=== PATIENT | male | born 1960 | race Caucasian/White ===

== ENCOUNTER 2018-02-24 18:38 | Inpatient (IN) | payer MEDICARE, OTHER ==
[2018-02-24 20:40] LABS: ADD MAN DIFF? NO
[2018-02-24 20:41] LABS: WHITE BLOOD COUNT 8.8 10^3/ul (4.8-10.8)
[2018-02-24 20:41] LABS: BASOPHIL # 0.1 10^3/ul (0.0-0.1); BASOPHILS % 0.6 % (0.0-2.0); EOSINOPHILS # 0.2 10^3/ul (0.0-0.5); EOSINOPHILS % 2.3 % (0.0-7.0); HEMATOCRIT 33.8 % (42.0-52.0); HEMOGLOBIN 10.7 g/dl (14.0-18.0); LYMPHOCYTES # 1.3 10^3/ul (0.8-2.9); LYMPHOCYTES % 15.1 % (15.0-51.0); MEAN CORPUSCULAR HEMOGLOBIN 22.9 pg (29.0-33.0); MEAN CORPUSCULAR HGB CONC 31.7 g/dl (32.0-37.0); MEAN CORPUSCULAR VOLUME 72.2 fl (82.0-101.0); MONOCYTE # 0.9 10^3/ul (0.3-0.9); MONOCYTES % 10.6 % (0.0-11.0); NEUTROPHIL # 6.3 10^3/ul (1.6-7.5); NEUTROPHILS % 71.2 % (39.0-77.0); PLATELET COUNT 123 10^3/UL (140-415); RED BLOOD COUNT 4.68 10^6/ul (4.70-6.10); RED CELL DISTRIBUTION WIDTH 21.2 % (11.5-14.5)
[2018-02-24] MEDS: ONDANSETRON 4 MG INJ IV (20:44)
[2018-02-24] MEDS: SODIUM CHLORIDE 0.9% 1L BAG IV* (20:44)
[2018-02-24] MEDS: morphine 2 MG INJ IV (20:44)
[2018-02-24] MEDS: CEFEPIME 2GM/50 ML (PMX) 50 ML IVPB (20:45)
[2018-02-24 20:59] LABS: INR 1.42; PROTIME 17.6 Sec (11.9-14.9); PT RATIO 1.4
[2018-02-24 21:00] LABS: PARTIAL THROMBOPLASTIN TIME 38.8 Sec (25.0-35.0)
[2018-02-24 21:02] LABS: ALANINE AMINOTRANSFERASE 29 IU/L (13-69); ALBUMIN 3.5 g/dl (3.3-4.9); ALBUMIN/GLOBULIN RATIO 0.79; ALKALINE PHOSPHATASE 89 IU/L (42-121); ANION GAP 12 (8-16); ASPARTATE AMINO TRANSFERASE 40 IU/L (15-46); BILIRUBIN,INDIRECT 1.4 mg/dl (0-1.1); BILIRUBIN,TOTAL 1.4 mg/dl (0.2-1.3); BLOOD UREA NITROGEN 6 mg/dl (7-20); CALCIUM 8.3 mg/dl (8.4-10.2); CARBON DIOXIDE 24 mmol/L (21-31); CHLORIDE 104 mmol/L (97-110); CREATININE 0.51 mg/dl (0.61-1.24); GLUCOSE 103 mg/dl (70-220); SODIUM 137 mmol/L (135-144); TOTAL PROTEIN 7.9 g/dl (6.1-8.1)
[2018-02-24 21:06] LABS: LACTIC ACID 2.2 mmol/L (0.5-2.0)
[2018-02-24 21:12] LABS: ADD UMIC NO; UR ASCORBIC ACID NEGATIVE (NEGATIVE); UR BILIRUBIN (Dip) NEGATIVE (NEGATIVE); UR BLOOD (Dip) NEGATIVE (NEGATIVE); UR CLARITY CLEAR (CLEAR); UR COLOR YELLOW (YELLOW); UR GLUCOSE (Dip) NEGATIVE (NEGATIVE); UR KETONES (Dip) NEGATIVE (NEGATIVE); UR LEUKOCYTE ESTERASE (Dip) NEGATIVE Leu/ul (NEGATIVE); UR NITRITE (Dip) NEGATIVE (NEGATIVE); UR SPECIFIC GRAVITY (Dip) 1.012 (1.003-1.030); UR TOTAL PROTEIN (Dip) NEGATIVE (NEGATIVE); UR UROBILINOGEN (Dip) NEGATIVE (NEGATIVE)
[2018-02-24 21:13] LABS: TROPONIN-I < 0.010 ng/ml (0.000-0.120)
[2018-02-24] MEDS: ASPIRIN 81 MG TAB PO (21:28)
[2018-02-24 23:11] LABS: LACTIC ACID 1.2 mmol/L (0.5-2.0)
[2018-02-25] MEDS: POTASSIUM CHLORIDE (SR) 20 MEQ TAB PO ×2 (00:16→12:11)
[2018-02-25 00:54] LABS: MAGNESIUM 1.3 mg/dl (1.7-2.5)
[2018-02-25 01:03] LABS: LACTIC ACID 1.3 mmol/L (0.5-2.0)
[2018-02-25] MEDS ORDERED: ONDANSETRON 4 MG INJ IV (03:00)
[2018-02-25] MEDS: SOD CHLORIDE 0.9% 1,000 ML IV (03:02)
[2018-02-25 05:46] LABS: ADD MAN DIFF? NO
[2018-02-25 05:50] LABS: WHITE BLOOD COUNT 5.5 10^3/ul (4.8-10.8)
[2018-02-25 05:50] LABS: ABNORMAL IP MESSAGE 1; BASOPHIL # 0.1 10^3/ul (0.0-0.1); BASOPHILS % 0.9 % (0.0-2.0); EOSINOPHILS # 0.2 10^3/ul (0.0-0.5); EOSINOPHILS % 4.4 % (0.0-7.0); HEMATOCRIT 28.4 % (42.0-52.0); HEMOGLOBIN 8.6 g/dl (14.0-18.0); LYMPHOCYTES # 1.4 10^3/ul (0.8-2.9); LYMPHOCYTES % 26.2 % (15.0-51.0); MEAN CORPUSCULAR HEMOGLOBIN 22.7 pg (29.0-33.0); MEAN CORPUSCULAR HGB CONC 30.3 g/dl (32.0-37.0); MEAN CORPUSCULAR VOLUME 74.9 fl (82.0-101.0); MEAN PLATELET VOLUME 10.9 fl (7.4-10.4); MONOCYTE # 0.7 10^3/ul (0.3-0.9); MONOCYTES % 12.6 % (0.0-11.0); NEUTROPHIL # 3.1 10^3/ul (1.6-7.5); NEUTROPHILS % 55.7 % (39.0-77.0); PLATELET COUNT 110 10^3/UL (140-415); POSITIVE DIFF @See below; RED BLOOD COUNT 3.79 10^6/ul (4.70-6.10); RED CELL DISTRIBUTION WIDTH 20.6 % (11.5-14.5)
[2018-02-25 06:03] LABS: LACTIC ACID 1.2 mmol/L (0.5-2.0)
[2018-02-25 06:14] LABS: ALANINE AMINOTRANSFERASE 27 IU/L (13-69); ALBUMIN 2.6 g/dl (3.3-4.9); ALKALINE PHOSPHATASE 64 IU/L (42-121); ANION GAP 7 (8-16); ASPARTATE AMINO TRANSFERASE 32 IU/L (15-46); BILIRUBIN,INDIRECT 1.3 mg/dl (0-1.1); BILIRUBIN,TOTAL 1.3 mg/dl (0.2-1.3); BLOOD UREA NITROGEN 5 mg/dl (7-20); CALCIUM 7.5 mg/dl (8.4-10.2); CARBON DIOXIDE 26 mmol/L (21-31); CHLORIDE 112 mmol/L (97-110); CREATININE 0.47 mg/dl (0.61-1.24); GLUCOSE 84 mg/dl (70-220); MAGNESIUM 1.4 mg/dl (1.7-2.5); POTASSIUM 3.3 mmol/L (3.5-5.1); SODIUM 142 mmol/L (135-144); TOTAL PROTEIN 6.3 g/dl (6.1-8.1)
[2018-02-25] MEDS: LEVOTHYROXINE 25 MCG TAB PO ×2 (07:00→10:58)
[2018-02-25] MEDS: metroNIDAZOLE 500 MG/NS (PMX) 100 ML IVPB ×3 (08:36→21:30)
[2018-02-25] MEDS ORDERED: CEFTRIAXONE 1 GM/50 ML (PMX) 50 ML IVPB (09:00)
[2018-02-25] MEDS: CIPROFLOXACIN 400MG/D5W 200 ML IVPB ×2 (10:25→21:30)
[2018-02-25] MEDS: COLCHICINE 0.6 MG TAB PO (10:57)
[2018-02-25] MEDS: BUSPIRONE 10 MG TAB PO ×3 (10:58→21:30)
[2018-02-25] MEDS: SERTRALINE 100 MG TAB PO (10:58)
[2018-02-25] MEDS: ALLOPURINOL 100 MG TAB PO ×2 (10:58→21:30)
[2018-02-25] MEDS: BACLOFEN 10 MG TAB PO ×3 (10:58→21:30)
[2018-02-25] MEDS: MAGNESIUM SULFATE 2 GM/50 ML 50 ML IVPB (12:11)
[2018-02-25] MEDS: METHOCARBAMOL 500 MG TAB PO (12:16)
[2018-02-25] MEDS: POTASSIUM CHLORIDE 100 ML IVPB (14:46)
[2018-02-25] MEDS: BARIUM SULF 2% 450 ML BTL (BERRY SMOOTHIE) PO (17:03)
[2018-02-25] MEDS: SOD CHLORIDE 0.9% 100 ML (20:51)
[2018-02-25] MEDS: IOHEXOL 300MG/ML 150 ML BTL (20:52)
[2018-02-25] MEDS: ATORVASTATIN 10 MG TAB PO (21:30)
[2018-02-25] MEDS: ACETAMINOPHEN 325 MG TAB PO (21:36)
[2018-02-26] MEDS: metroNIDAZOLE 500 MG/NS (PMX) 100 ML IVPB ×3 (05:08→22:44)
[2018-02-26 05:42] LABS: ADD MAN DIFF? NO
[2018-02-26 05:56] LABS: BASOPHIL # 0.1 10^3/ul (0.0-0.1); BASOPHILS % 0.8 % (0.0-2.0); EOSINOPHILS # 0.3 10^3/ul (0.0-0.5); EOSINOPHILS % 4.5 % (0.0-7.0); HEMATOCRIT 32.1 % (42.0-52.0); HEMOGLOBIN 9.9 g/dl (14.0-18.0); LYMPHOCYTES # 1.2 10^3/ul (0.8-2.9); LYMPHOCYTES % 20.6 % (15.0-51.0); MEAN CORPUSCULAR HEMOGLOBIN 23.2 pg (29.0-33.0); MEAN CORPUSCULAR HGB CONC 30.8 g/dl (32.0-37.0); MEAN CORPUSCULAR VOLUME 75.4 fl (82.0-101.0); MEAN PLATELET VOLUME 10.1 fl (7.4-10.4); MONOCYTE # 0.8 10^3/ul (0.3-0.9); MONOCYTES % 12.6 % (0.0-11.0); NEUTROPHIL # 3.6 10^3/ul (1.6-7.5); NEUTROPHILS % 61.2 % (39.0-77.0); PLATELET COUNT 110 10^3/UL (140-415); RED BLOOD COUNT 4.26 10^6/ul (4.70-6.10); RED CELL DISTRIBUTION WIDTH 20.4 % (11.5-14.5)
[2018-02-26 06:31] LABS: IRON 13 ug/dl (35-150)
[2018-02-26 06:37] LABS: ANION GAP 8 (8-16); BLOOD UREA NITROGEN 6 mg/dl (7-20); CALCIUM 8.1 mg/dl (8.4-10.2); CARBON DIOXIDE 24 mmol/L (21-31); CHLORIDE 110 mmol/L (97-110); CREATININE 0.47 mg/dl (0.61-1.24); GLUCOSE 92 mg/dl (70-220); POTASSIUM 3.4 mmol/L (3.5-5.1); SODIUM 139 mmol/L (135-144)
[2018-02-26 06:40] LABS: % IRON SATURATION 4 % SAT (22-52); TOTAL IRON BINDING CAPACITY 327 ug/dl (241-421)
[2018-02-26] MEDS: ALLOPURINOL 100 MG TAB PO ×2 (09:00→21:09)
[2018-02-26] MEDS: SERTRALINE 100 MG TAB PO (09:00)
[2018-02-26] MEDS: BUSPIRONE 10 MG TAB PO ×3 (09:00→21:10)
[2018-02-26] MEDS: METHOCARBAMOL 500 MG TAB PO ×2 (09:00→18:28)
[2018-02-26] MEDS: LEVOTHYROXINE 25 MCG TAB PO (09:02)
[2018-02-26] MEDS: BACLOFEN 10 MG TAB PO ×3 (09:08→21:09)
[2018-02-26] MEDS: CIPROFLOXACIN 400MG/D5W 200 ML IVPB ×2 (09:12→21:08)
[2018-02-26] MEDS: COLCHICINE 0.6 MG TAB PO (09:13)
[2018-02-26] MEDS: POTASSIUM CHLORIDE (SR) 20 MEQ TAB PO (12:39)
[2018-02-26] MEDS: SOD FERRIC GLUC COMPLX 125 MG in SOD CHLORIDE 0.9% 100 ML IVPB (18:16)
[2018-02-26] MEDS: PROPRANOLOL 10 MG TAB PO (21:09)
[2018-02-26] MEDS: ATORVASTATIN 10 MG TAB PO (21:09)
[2018-02-26] MEDS: ACETAMINOPHEN 325 MG TAB PO (21:09)
[2018-02-26 22:17] LABS: OCCULT BLOOD STOOL NEGATIVE (NEGATIVE)
[2018-02-27 05:50] LABS: ADD MAN DIFF? NO
[2018-02-27] MEDS: metroNIDAZOLE 500 MG/NS (PMX) 100 ML IVPB ×2 (05:58→14:50)
[2018-02-27 06:06] LABS: WHITE BLOOD COUNT 6.2 10^3/ul (4.8-10.8)
[2018-02-27 06:06] LABS: BASOPHIL # 0.1 10^3/ul (0.0-0.1); BASOPHILS % 1.1 % (0.0-2.0); EOSINOPHILS # 0.3 10^3/ul (0.0-0.5); EOSINOPHILS % 5.1 % (0.0-7.0); HEMATOCRIT 31.3 % (42.0-52.0); HEMOGLOBIN 9.5 g/dl (14.0-18.0); LYMPHOCYTES # 1.2 10^3/ul (0.8-2.9); LYMPHOCYTES % 19.4 % (15.0-51.0); MEAN CORPUSCULAR HEMOGLOBIN 22.5 pg (29.0-33.0); MEAN CORPUSCULAR HGB CONC 30.4 g/dl (32.0-37.0); MEAN CORPUSCULAR VOLUME 74.2 fl (82.0-101.0); MEAN PLATELET VOLUME 10.1 fl (7.4-10.4); MONOCYTE # 0.8 10^3/ul (0.3-0.9); MONOCYTES % 12.2 % (0.0-11.0); NEUTROPHIL # 3.9 10^3/ul (1.6-7.5); NEUTROPHILS % 61.9 % (39.0-77.0); PLATELET COUNT 118 10^3/UL (140-415); RED BLOOD COUNT 4.22 10^6/ul (4.70-6.10); RED CELL DISTRIBUTION WIDTH 21.2 % (11.5-14.5)
[2018-02-27 06:11] LABS: MAGNESIUM 1.4 mg/dl (1.7-2.5)
[2018-02-27 06:13] LABS: ANION GAP 11 (8-16); BLOOD UREA NITROGEN 6 mg/dl (7-20); CALCIUM 8.3 mg/dl (8.4-10.2); CARBON DIOXIDE 23 mmol/L (21-31); CHLORIDE 109 mmol/L (97-110); CREATININE 0.44 mg/dl (0.61-1.24); GLUCOSE 91 mg/dl (70-220); POTASSIUM 3.5 mmol/L (3.5-5.1); SODIUM 139 mmol/L (135-144)
[2018-02-27 06:53] LABS: PROSTATE SPECIFIC ANTIGEN 1.7 ng/ml (0.0-4.0)
[2018-02-27] MEDS: COLCHICINE 0.6 MG TAB PO (09:01)
[2018-02-27] MEDS: BACLOFEN 10 MG TAB PO ×3 (09:01→21:30)
[2018-02-27] MEDS: ALLOPURINOL 100 MG TAB PO ×2 (09:01→21:29)
[2018-02-27] MEDS: SERTRALINE 100 MG TAB PO ×2 (09:01→09:07)
[2018-02-27] MEDS: BUSPIRONE 10 MG TAB PO ×3 (09:02→21:29)
[2018-02-27] MEDS: PROPRANOLOL 10 MG TAB PO ×2 (09:03→21:36)
[2018-02-27] MEDS: CIPROFLOXACIN 400MG/D5W 200 ML IVPB ×2 (09:04→22:35)
[2018-02-27] MEDS ORDERED: VANCOMYCIN IV PER PHARMACY XX (13:30)
[2018-02-27] MEDS: POTASSIUM CHLORIDE (SR) 20 MEQ TAB PO (14:51)
[2018-02-27] MEDS: HYDROCODONE/APAP (5/325) TAB PO ×2 (15:01→19:50)
[2018-02-27] MEDS: MAGNESIUM SULFATE 2 GM/50 ML 50 ML IVPB (16:08)
[2018-02-27 18:55] LABS: AMPHETAMINE/METHAMPHETAMINE Negative (NEGATIVE); BARBITURATES Negative (NEGATIVE); BENZODIAZEPINES Negative (NEGATIVE); CANNABINOIDS Negative (NEGATIVE); COCAINE Negative (NEGATIVE); OPIATES Negative (NEGATIVE)
[2018-02-27] MEDS: VANCOMYCIN 2 GM in SOD CHLORIDE 0.9% 500 ML IVPB (19:38)
[2018-02-27] MEDS: SOD FERRIC GLUC COMPLX 125 MG in SOD CHLORIDE 0.9% 100 ML IVPB (21:27)
[2018-02-27] MEDS: ATORVASTATIN 10 MG TAB PO (21:29)
[2018-02-27] MEDS ORDERED: VANCOMYCIN 1.25 GM in SOD CHLORIDE 0.9% 250 ML IVPB (23:00)
[2018-02-28] MEDS: metroNIDAZOLE 500 MG/NS (PMX) 100 ML IVPB ×4 (00:02→21:29)
[2018-02-28] MEDS: VANCOMYCIN 1.25 GM in SOD CHLORIDE 0.9% 250 ML IVPB ×4 (04:59→21:29)
[2018-02-28] MEDS: LEVOTHYROXINE 25 MCG TAB PO (06:10)
[2018-02-28 06:28] LABS: ADD MAN DIFF? NO
[2018-02-28 06:31] LABS: BASOPHIL # 0.1 10^3/ul (0.0-0.1); EOSINOPHILS # 0.3 10^3/ul (0.0-0.5); EOSINOPHILS % 4.2 % (0.0-7.0); HEMATOCRIT 31.8 % (42.0-52.0); HEMOGLOBIN 9.8 g/dl (14.0-18.0); LYMPHOCYTES # 1.3 10^3/ul (0.8-2.9); LYMPHOCYTES % 16.7 % (15.0-51.0); MEAN CORPUSCULAR HEMOGLOBIN 22.9 pg (29.0-33.0); MEAN CORPUSCULAR HGB CONC 30.8 g/dl (32.0-37.0); MEAN CORPUSCULAR VOLUME 74.3 fl (82.0-101.0); MONOCYTE # 0.9 10^3/ul (0.3-0.9); MONOCYTES % 12.2 % (0.0-11.0); NEUTROPHILS % 65.6 % (39.0-77.0); PLATELET COUNT 135 10^3/UL (140-415); RED BLOOD COUNT 4.28 10^6/ul (4.70-6.10); RED CELL DISTRIBUTION WIDTH 21.7 % (11.5-14.5)
[2018-02-28 06:31] LABS: WHITE BLOOD COUNT 7.7 10^3/ul (4.8-10.8)
[2018-02-28 07:29] LABS: ANION GAP 11 (8-16); BLOOD UREA NITROGEN 6 mg/dl (7-20); CALCIUM 8.2 mg/dl (8.4-10.2); CARBON DIOXIDE 23 mmol/L (21-31); CHLORIDE 107 mmol/L (97-110); CREATININE 0.53 mg/dl (0.61-1.24); GLUCOSE 88 mg/dl (70-220); POTASSIUM 3.8 mmol/L (3.5-5.1); SODIUM 137 mmol/L (135-144)
[2018-02-28] MEDS: BUSPIRONE 10 MG TAB PO ×3 (09:00→20:20)
[2018-02-28] MEDS: COLCHICINE 0.6 MG TAB PO (09:59)
[2018-02-28] MEDS: CIPROFLOXACIN 400MG/D5W 200 ML IVPB ×2 (09:59→20:20)
[2018-02-28] MEDS: ALLOPURINOL 100 MG TAB PO ×2 (10:00→20:21)
[2018-02-28] MEDS: BACLOFEN 10 MG TAB PO ×3 (10:00→20:21)
[2018-02-28] MEDS: PROPRANOLOL 10 MG TAB PO ×2 (10:01→20:21)
[2018-02-28] MEDS: HYDROCODONE/APAP (5/325) TAB PO ×3 (10:13→19:48)
[2018-02-28 14:49] LABS: ALPHA FETOPROTEIN 2.97 IU/L (0.00-7.21)
[2018-02-28] MEDS: SOD FERRIC GLUC COMPLX 125 MG in SOD CHLORIDE 0.9% 100 ML IVPB (17:32)
[2018-02-28 20:14] LABS: VANCOMYCIN,TROUGH 13.7 ug/ml (10.0-20.0)
[2018-02-28] MEDS: ATORVASTATIN 10 MG TAB PO (20:21)
[2018-03-01] MEDS: VANCOMYCIN 1.25 GM in SOD CHLORIDE 0.9% 250 ML IVPB ×4 (04:35→22:57)
[2018-03-01] MEDS: LEVOTHYROXINE 25 MCG TAB PO (06:11)
[2018-03-01] MEDS: metroNIDAZOLE 500 MG/NS (PMX) 100 ML IVPB ×3 (06:11→21:45)
[2018-03-01 06:22] LABS: ADD MAN DIFF? NO
[2018-03-01 06:36] LABS: ABNORMAL IP MESSAGE 1; BASOPHIL # 0.1 10^3/ul (0.0-0.1); BASOPHILS % 0.9 % (0.0-2.0); EOSINOPHILS # 0.3 10^3/ul (0.0-0.5); EOSINOPHILS % 3.6 % (0.0-7.0); HEMATOCRIT 29.5 % (42.0-52.0); HEMOGLOBIN 9.3 g/dl (14.0-18.0); LYMPHOCYTES # 1.1 10^3/ul (0.8-2.9); LYMPHOCYTES % 16.2 % (15.0-51.0); MEAN CORPUSCULAR HEMOGLOBIN 23.3 pg (29.0-33.0); MEAN CORPUSCULAR HGB CONC 31.5 g/dl (32.0-37.0); MEAN CORPUSCULAR VOLUME 73.9 fl (82.0-101.0); MEAN PLATELET VOLUME 11.1 fl (7.4-10.4); NEUTROPHIL # 4.5 10^3/ul (1.6-7.5); PLATELET COUNT 122 10^3/UL (140-415); POSITIVE DIFF @See below; RED BLOOD COUNT 3.99 10^6/ul (4.70-6.10)
[2018-03-01 06:36] LABS: WHITE BLOOD COUNT 6.9 10^3/ul (4.8-10.8)
[2018-03-01 07:08] LABS: ALANINE AMINOTRANSFERASE 24 IU/L (13-69); ALBUMIN 2.8 g/dl (3.3-4.9); ALBUMIN/GLOBULIN RATIO 0.73; ALKALINE PHOSPHATASE 73 IU/L (42-121); ANION GAP 10 (8-16); ASPARTATE AMINO TRANSFERASE 29 IU/L (15-46); BILIRUBIN,INDIRECT 0.7 mg/dl (0-1.1); BILIRUBIN,TOTAL 0.7 mg/dl (0.2-1.3); BLOOD UREA NITROGEN 5 mg/dl (7-20); CALCIUM 8.2 mg/dl (8.4-10.2); CARBON DIOXIDE 25 mmol/L (21-31); CHLORIDE 105 mmol/L (97-110); CREATININE 0.45 mg/dl (0.61-1.24); GLUCOSE 87 mg/dl (70-220); POTASSIUM 3.2 mmol/L (3.5-5.1); SODIUM 137 mmol/L (135-144); TOTAL PROTEIN 6.6 g/dl (6.1-8.1)
[2018-03-01] MEDS: SERTRALINE 100 MG TAB PO (08:28)
[2018-03-01] MEDS: COLCHICINE 0.6 MG TAB PO (08:28)
[2018-03-01] MEDS: BACLOFEN 10 MG TAB PO ×3 (08:28→20:29)
[2018-03-01] MEDS: ALLOPURINOL 100 MG TAB PO ×2 (08:28→20:29)
[2018-03-01] MEDS: BUSPIRONE 10 MG TAB PO ×4 (08:28→21:00)
[2018-03-01] MEDS: CIPROFLOXACIN 400MG/D5W 200 ML IVPB ×2 (08:28→20:29)
[2018-03-01] MEDS: PROPRANOLOL 10 MG TAB PO ×2 (08:29→21:45)
[2018-03-01] MEDS: HYDROCODONE/APAP (5/325) TAB PO ×2 (12:20→19:44)
[2018-03-01 13:58] LABS: HEPATITIS B SURFACE ANTIGEN NEGATIVE (NEGATIVE)
[2018-03-01 14:16] LABS: HEPATITIS B CORE ANTIBODY NEGATIVE (NEGATIVE); HEPATITIS C VIRAL ANTIBODY NEGATIVE (NEGATIVE)
[2018-03-01 14:40] LABS: HEPATITIS B SURFACE ANTIBODY NEGATIVE (NEGATIVE)
[2018-03-01] MEDS: POTASSIUM CHLORIDE (SR) 20 MEQ TAB PO (15:46)
[2018-03-01] MEDS: SOD FERRIC GLUC COMPLX 125 MG in SOD CHLORIDE 0.9% 100 ML IVPB (17:57)
[2018-03-01] MEDS: ATORVASTATIN 10 MG TAB PO (20:29)
[2018-03-02 05:28] LABS: ADD MAN DIFF? NO
[2018-03-02 05:32] LABS: WHITE BLOOD COUNT 6.5 10^3/ul (4.8-10.8)
[2018-03-02 05:32] LABS: ABNORMAL IP MESSAGE 1; BASOPHILS % 0.6 % (0.0-2.0); EOSINOPHILS # 0.2 10^3/ul (0.0-0.5); EOSINOPHILS % 3.7 % (0.0-7.0); HEMATOCRIT 30.3 % (42.0-52.0); HEMOGLOBIN 9.4 g/dl (14.0-18.0); LYMPHOCYTES % 15.7 % (15.0-51.0); MEAN CORPUSCULAR HEMOGLOBIN 23.2 pg (29.0-33.0); MEAN CORPUSCULAR VOLUME 74.8 fl (82.0-101.0); MEAN PLATELET VOLUME 10.9 fl (7.4-10.4); MONOCYTE # 0.8 10^3/ul (0.3-0.9); MONOCYTES % 12.3 % (0.0-11.0); NEUTROPHIL # 4.4 10^3/ul (1.6-7.5); NEUTROPHILS % 67.2 % (39.0-77.0); PLATELET COUNT 120 10^3/UL (140-415); POSITIVE DIFF @See below; RED BLOOD COUNT 4.05 10^6/ul (4.70-6.10); RED CELL DISTRIBUTION WIDTH 22.3 % (11.5-14.5)
[2018-03-02] MEDS: metroNIDAZOLE 500 MG/NS (PMX) 100 ML IVPB (05:46)
[2018-03-02] MEDS: VANCOMYCIN 1.25 GM in SOD CHLORIDE 0.9% 250 ML IVPB ×2 (05:49→12:42)
[2018-03-02 05:57] LABS: ALANINE AMINOTRANSFERASE 21 IU/L (13-69); ALBUMIN 2.8 g/dl (3.3-4.9); ALBUMIN/GLOBULIN RATIO 0.71; ALKALINE PHOSPHATASE 74 IU/L (42-121); ANION GAP 8 (8-16); ASPARTATE AMINO TRANSFERASE 30 IU/L (15-46); BILIRUBIN,INDIRECT 0.7 mg/dl (0-1.1); BILIRUBIN,TOTAL 0.7 mg/dl (0.2-1.3); BLOOD UREA NITROGEN 6 mg/dl (7-20); CALCIUM 8.2 mg/dl (8.4-10.2); CARBON DIOXIDE 25 mmol/L (21-31); CHLORIDE 106 mmol/L (97-110); CREATININE 0.45 mg/dl (0.61-1.24); GLUCOSE 94 mg/dl (70-220); POTASSIUM 3.3 mmol/L (3.5-5.1); SODIUM 136 mmol/L (135-144); TOTAL PROTEIN 6.7 g/dl (6.1-8.1)
[2018-03-02 05:58] LABS: INR 1.51; PROTIME 18.5 Sec (11.9-14.9); PT RATIO 1.4
[2018-03-02 05:59] LABS: PARTIAL THROMBOPLASTIN TIME 44.5 Sec (25.0-35.0)
[2018-03-02] MEDS: LEVOTHYROXINE 25 MCG TAB PO (06:06)
[2018-03-02] MEDS: SERTRALINE 100 MG TAB PO (08:34)
[2018-03-02] MEDS: BUSPIRONE 10 MG TAB PO ×2 (08:34→12:42)
[2018-03-02] MEDS: COLCHICINE 0.6 MG TAB PO (08:36)
[2018-03-02] MEDS: BACLOFEN 10 MG TAB PO ×2 (08:36→13:29)
[2018-03-02] MEDS: PROPRANOLOL 10 MG TAB PO (08:36)
[2018-03-02] MEDS: ALLOPURINOL 100 MG TAB PO (08:36)
[2018-03-02] MEDS: CIPROFLOXACIN 400MG/D5W 200 ML IVPB (08:36)
[2018-03-02] MEDS: HYDROCODONE/APAP (5/325) TAB PO (10:44)
[2018-03-02] MEDS: POTASSIUM CHLORIDE (SR) 20 MEQ TAB PO (12:00)
[2018-03-02] MEDS: POTASSIUM CHLORIDE 100 ML IVPB (12:33)
[2018-03-02] MEDS: HEPATITIS B VACCINE 10 MCG/0.5 ML VIAL IM* (13:49)
== END 2018-03-02 15:15 | disposition home or self-care (01) | DRG 872 ==
LOC: MS1 23:18 → E/R 18:38 → MS1 02-25 05:21
DX: A41.9 Sepsis, unspecified organism (principal); S32.011A Stable burst fracture of first lumbar vertebra, initial encounter for closed fracture; K76.6 Portal hypertension; I85.10 Secondary esophageal varices without bleeding; K52.9 Noninfective gastroenteritis and colitis, unspecified; K70.31 Alcoholic cirrhosis of liver with ascites; E03.9 Hypothyroidism, unspecified; D50.9 Iron deficiency anemia, unspecified; M1A.9XX0 Chronic gout, unspecified, without tophus (tophi); E87.6 Hypokalemia; E78.5 Hyperlipidemia, unspecified; M54.5 Low back pain; F10.10 Alcohol abuse, uncomplicated; W03.XXXA Other fall on same level due to collision with another person, initial encounter; Y93.E1 Activity, personal bathing and showering; Y92.041 Bathroom in boarding-house as the place of occurrence of the external cause; Y99.8 Other external cause status
CPT/HCPCS: 36415; 71045; 72131; 72146; 74177; 76700; 80048; 80053; 80202; 80307; 81003; 82105; 82270; 82378; 83540; 83605; 83735; 84100; 84153; 84154; 84484; 85025; 85610; 85730; 86704; 86706; 86803; 87040; 87045; 87075; 87086; 87177; 87340; 93005; 93306; 96374; 96375; 97161; 99291-25

== ENCOUNTER 2018-03-09 18:44 | Emergency (ER) | payer MEDICARE, OTHER ==
[2018-03-09] MEDS: ONDANSETRON 4 MG INJ IV (19:48)
[2018-03-09] MEDS: HYDROmorphONE 1 MG/ML SYG IV (19:48)
[2018-03-09 19:49] LABS: ADD MAN DIFF? NO
[2018-03-09 19:51] LABS: WHITE BLOOD COUNT 7.9 10^3/ul (4.8-10.8)
[2018-03-09 19:52] LABS: ABNORMAL IP MESSAGE 1; BASOPHILS % 0.5 % (0.0-2.0); EOSINOPHILS # 0.1 10^3/ul (0.0-0.5); HEMATOCRIT 29.9 % (42.0-52.0); HEMOGLOBIN 9.4 g/dl (14.0-18.0); IMMATURE GRANS #M 0.02 10^3/ul; IMMATURE GRANS % (M) 0.3 %; LYMPHOCYTES # 1.3 10^3/ul (0.8-2.9); MEAN CORPUSCULAR HGB CONC 31.4 g/dl (32.0-37.0); MEAN CORPUSCULAR VOLUME 76.3 fl (82.0-101.0); MEAN PLATELET VOLUME 10.6 fl (7.4-10.4); MONOCYTES % 12.3 % (0.0-11.0); NEUTROPHIL # 5.5 10^3/ul (1.6-7.5); NEUTROPHILS % 69.9 % (39.0-77.0); PLATELET COUNT 167 10^3/UL (140-415); POSITIVE DIFF @See below; RED BLOOD COUNT 3.92 10^6/ul (4.70-6.10); RED CELL DISTRIBUTION WIDTH 24.8 % (11.5-14.5)
[2018-03-09] MEDS: SOD CHLORIDE 0.9% 100 ML (20:00)
[2018-03-09] MEDS: IODIXANOL LOCM 100 ML BTL (20:01)
[2018-03-09 20:16] LABS: ALANINE AMINOTRANSFERASE 23 IU/L (13-69); ALBUMIN 2.9 g/dl (3.3-4.9); ALBUMIN/GLOBULIN RATIO 0.63; ALKALINE PHOSPHATASE 115 IU/L (42-121); ANION GAP 11 (8-16); ASPARTATE AMINO TRANSFERASE 45 IU/L (15-46); BILIRUBIN,INDIRECT 0.8 mg/dl (0-1.1); BILIRUBIN,TOTAL 0.8 mg/dl (0.2-1.3); BLOOD UREA NITROGEN 7 mg/dl (7-20); CALCIUM 8.3 mg/dl (8.4-10.2); CARBON DIOXIDE 26 mmol/L (21-31); CHLORIDE 102 mmol/L (97-110); CREATININE 0.49 mg/dl (0.61-1.24); GLUCOSE 108 mg/dl (70-220); LIPASE 115 U/L (23-300); SODIUM 135 mmol/L (135-144); TOTAL PROTEIN 7.5 g/dl (6.1-8.1)
== END 2018-03-09 22:48 | disposition home or self-care (01) ==
LOC: E/R 22:48
DX: R10.13 Epigastric pain (principal); R19.7 Diarrhea, unspecified; R11.0 Nausea; R40.2142 Coma scale, eyes open, spontaneous, at arrival to emergency department; R40.2252 Coma scale, best verbal response, oriented, at arrival to emergency department; R40.2362 Coma scale, best motor response, obeys commands, at arrival to emergency department
CPT/HCPCS: 36415; 74177; 76705; 80053; 83690; 85025; 96374; 96375; 99285-25

== ENCOUNTER 2018-03-11 12:42 | Emergency (ER) | payer MEDICARE, OTHER ==
[2018-03-11] MEDS: ONDANSETRON (ODT) 4 MG TAB ODT (16:57)
[2018-03-11] MEDS: HYDROCODONE/APAP (10/325) TAB PO (16:57)
== END 2018-03-11 17:33 | disposition home or self-care (01) ==
LOC: E/R 17:33
DX: R18.8 Other ascites (principal)
CPT/HCPCS: 99284

== ENCOUNTER 2018-03-12 07:39 | Emergency (ER) | payer MEDICARE, OTHER ==
[2018-03-12 08:37] LABS: ADD MAN DIFF? NO
[2018-03-12 08:45] LABS: ABNORMAL IP MESSAGE 1; BASOPHILS % 0.6 % (0.0-2.0); EOSINOPHILS # 0.1 10^3/ul (0.0-0.5); EOSINOPHILS % 2.1 % (0.0-7.0); HEMATOCRIT 29.8 % (42.0-52.0); HEMOGLOBIN 9.1 g/dl (14.0-18.0); LYMPHOCYTES # 0.9 10^3/ul (0.8-2.9); LYMPHOCYTES % 16.5 % (15.0-51.0); MEAN CORPUSCULAR HEMOGLOBIN 23.9 pg (29.0-33.0); MEAN CORPUSCULAR HGB CONC 30.5 g/dl (32.0-37.0); MEAN CORPUSCULAR VOLUME 78.2 fl (82.0-101.0); MONOCYTE # 0.9 10^3/ul (0.3-0.9); MONOCYTES % 17.3 % (0.0-11.0); NEUTROPHIL # 3.3 10^3/ul (1.6-7.5); NEUTROPHILS % 63.1 % (39.0-77.0); PLATELET COUNT 167 10^3/UL (140-415); POSITIVE DIFF @See below; RED BLOOD COUNT 3.81 10^6/ul (4.70-6.10); RED CELL DISTRIBUTION WIDTH 24.8 % (11.5-14.5)
[2018-03-12 08:45] LABS: WHITE BLOOD COUNT 5.2 10^3/ul (4.8-10.8)
[2018-03-12 09:03] LABS: INR 1.42; PROTIME 17.6 Sec (11.9-14.9); PT RATIO 1.4
[2018-03-12] MEDS: LIDOCAINE 1% (MPF) 5 ML VIAL (10:30)
== END 2018-03-12 11:22 | disposition home or self-care (01) ==
LOC: E/R 07:39
DX: K70.31 Alcoholic cirrhosis of liver with ascites (principal); I10 Essential (primary) hypertension; E03.9 Hypothyroidism, unspecified; R40.2142 Coma scale, eyes open, spontaneous, at arrival to emergency department; R40.2252 Coma scale, best verbal response, oriented, at arrival to emergency department; R40.2362 Coma scale, best motor response, obeys commands, at arrival to emergency department
CPT/HCPCS: 36415; 85025; 85610; 99285-25

== ENCOUNTER 2018-04-18 03:14 | Emergency (ER) | payer MEDICARE, OTHER | END 2018-04-18 05:54 | disposition home or self-care (01) | LOC: FTE 03:14 | DX: K64.9 Unspecified hemorrhoids (principal); I10 Essential (primary) hypertension | CPT/HCPCS: 99282 ==

== ENCOUNTER 2018-05-26 07:11 | Emergency (ER) | payer MEDICARE, OTHER ==
[2018-05-26 07:46] LABS: ADD MAN DIFF? NO
[2018-05-26 07:48] LABS: WHITE BLOOD COUNT 9.9 10^3/ul (4.8-10.8)
[2018-05-26 07:48] LABS: BASOPHIL # 0.1 10^3/ul (0.0-0.1); BASOPHILS % 0.7 % (0.0-2.0); EOSINOPHILS # 0.2 10^3/ul (0.0-0.5); EOSINOPHILS % 2.2 % (0.0-7.0); HEMATOCRIT 30.4 % (42.0-52.0); HEMOGLOBIN 9.6 g/dl (14.0-18.0); LYMPHOCYTES # 1.6 10^3/ul (0.8-2.9); LYMPHOCYTES % 15.8 % (15.0-51.0); MEAN CORPUSCULAR HEMOGLOBIN 25.3 pg (29.0-33.0); MEAN CORPUSCULAR HGB CONC 31.6 g/dl (32.0-37.0); MEAN CORPUSCULAR VOLUME 80.2 fl (82.0-101.0); MEAN PLATELET VOLUME 9.8 fl (7.4-10.4); MONOCYTE # 0.8 10^3/ul (0.3-0.9); MONOCYTES % 8.5 % (0.0-11.0); NEUTROPHIL # 7.1 10^3/ul (1.6-7.5); NEUTROPHILS % 72.4 % (39.0-77.0); PLATELET COUNT 139 10^3/UL (140-415); RED BLOOD COUNT 3.79 10^6/ul (4.70-6.10); RED CELL DISTRIBUTION WIDTH 16.1 % (11.5-14.5)
[2018-05-26 08:16] LABS: INR 1.18; PROTIME 15.2 Sec (11.9-14.9); PT RATIO 1.2
[2018-05-26 08:17] LABS: PARTIAL THROMBOPLASTIN TIME 33.2 Sec (23.0-35.0)
[2018-05-26 08:18] LABS: ALANINE AMINOTRANSFERASE 26 IU/L (13-69); ALBUMIN 3.4 g/dl (3.3-4.9); ALKALINE PHOSPHATASE 87 IU/L (42-121); ANION GAP 11 (5-13); ASPARTATE AMINO TRANSFERASE 34 IU/L (15-46); BILIRUBIN,INDIRECT 0.7 mg/dl (0-1.1); BILIRUBIN,TOTAL 0.7 mg/dl (0.2-1.3); BLOOD UREA NITROGEN 9 mg/dl (7-20); CALCIUM 8.7 mg/dl (8.4-10.2); CARBON DIOXIDE 21 mmol/L (21-31); CHLORIDE 110 mmol/L (97-110); CREATININE 0.52 mg/dl (0.61-1.24); Estimated GFR > 60 mL/min (>60); GLUCOSE 129 mg/dl (70-220); POTASSIUM 3.5 mmol/L (3.5-5.1); SODIUM 142 mmol/L (135-144); TOTAL PROTEIN 7.6 g/dl (6.1-8.1)
[2018-05-26] MEDS: LIDOCAINE 1% (MPF) 5 ML VIAL (09:52)
== END 2018-05-26 09:53 | disposition home or self-care (01) ==
LOC: E/R 07:11
DX: K70.31 Alcoholic cirrhosis of liver with ascites (principal); I10 Essential (primary) hypertension
CPT/HCPCS: 36415; 80053; 85025; 85610; 85730; 99285-25

== ENCOUNTER 2018-07-15 07:41 | Emergency (ER) | payer MEDICARE, OTHER ==
[2018-07-15] MEDS: LIDOCAINE 1% (MPF) 5 ML VIAL (09:25)
== END 2018-07-15 10:42 | disposition home or self-care (01) ==
LOC: E/R 07:41
DX: R18.8 Other ascites (principal); R40.2142 Coma scale, eyes open, spontaneous, at arrival to emergency department; R40.2252 Coma scale, best verbal response, oriented, at arrival to emergency department; R40.2362 Coma scale, best motor response, obeys commands, at arrival to emergency department; I10 Essential (primary) hypertension
CPT/HCPCS: 99285; 99285-25

== ENCOUNTER 2018-08-17 08:09 | Observation (INO) | payer MEDICARE, OTHER ==
[2018-08-17 09:18] LABS: ADD MAN DIFF? NO
[2018-08-17 09:25] LABS: BASOPHIL # 0.1 10^3/ul (0.0-0.1); BASOPHILS % 1.6 % (0.0-2.0); EOSINOPHILS # 0.3 10^3/ul (0.0-0.5); HEMATOCRIT 29.4 % (42.0-52.0); HEMOGLOBIN 8.7 g/dl (14.0-18.0); LYMPHOCYTES % 25.5 % (15.0-51.0); MEAN CORPUSCULAR HEMOGLOBIN 21.3 pg (29.0-33.0); MEAN CORPUSCULAR HGB CONC 29.6 g/dl (32.0-37.0); MEAN CORPUSCULAR VOLUME 71.9 fl (82.0-101.0); MEAN PLATELET VOLUME 10.5 fl (7.4-10.4); MONOCYTE # 0.4 10^3/ul (0.3-0.9); MONOCYTES % 10.5 % (0.0-11.0); NEUTROPHIL # 2.1 10^3/ul (1.6-7.5); NEUTROPHILS % 55.1 % (39.0-77.0); PLATELET COUNT 125 10^3/UL (140-415); RED BLOOD COUNT 4.09 10^6/ul (4.70-6.10)
[2018-08-17 09:25] LABS: WHITE BLOOD COUNT 3.7 10^3/ul (4.8-10.8)
[2018-08-17 09:45] LABS: INR 1.22; PROTIME 15.5 Sec (11.9-14.9); PT RATIO 1.2
[2018-08-17 09:46] LABS: PARTIAL THROMBOPLASTIN TIME 35.4 Sec (23.0-35.0)
[2018-08-17 09:51] LABS: ALANINE AMINOTRANSFERASE 25 IU/L (13-69); ALBUMIN/GLOBULIN RATIO 0.66; ALKALINE PHOSPHATASE 76 IU/L (42-121); ANION GAP 9 (5-13); ASPARTATE AMINO TRANSFERASE 49 IU/L (15-46); BILIRUBIN,INDIRECT 0.7 mg/dl (0-1.1); BILIRUBIN,TOTAL 0.7 mg/dl (0.2-1.3); BLOOD UREA NITROGEN 11 mg/dl (7-20); CALCIUM 7.6 mg/dl (8.4-10.2); CARBON DIOXIDE 27 mmol/L (21-31); CHLORIDE 103 mmol/L (97-110); CREATININE 0.57 mg/dl (0.61-1.24); Estimated GFR > 60 mL/min (>60); GLUCOSE 146 mg/dl (70-220); SODIUM 139 mmol/L (135-144); TOTAL PROTEIN 7.5 g/dl (6.1-8.1)
[2018-08-17 10:05] LABS: POTASSIUM 2.8 mmol/L (3.5-5.1)
[2018-08-17] MEDS: LIDOCAINE 1% (MPF) 5 ML VIAL (10:23)
[2018-08-17 10:29] LABS: MAGNESIUM 1.9 mg/dl (1.7-2.5)
[2018-08-17] MEDS: POTASSIUM CHLORIDE 20 MEQ POWDER FOR ORAL SOLN PO (10:51)
[2018-08-17] MEDS: LIDOCAINE 2% 20 ML UROJET SYRINGE MM (11:12)
[2018-08-17] MEDS ORDERED: NACL 0.9% 3 ML SYG IV (12:30)
[2018-08-17] MEDS ORDERED: ACETAMINOPHEN 325 MG TAB PO (12:30)
[2018-08-17] MEDS ORDERED: ONDANSETRON 4 MG INJ IV (12:30)
[2018-08-17 15:17] LABS: ANION GAP 5 (5-13); BLOOD UREA NITROGEN 9 mg/dl (7-20); CALCIUM 7.7 mg/dl (8.4-10.2); CARBON DIOXIDE 27 mmol/L (21-31); CHLORIDE 106 mmol/L (97-110); CREATININE 0.55 mg/dl (0.61-1.24); Estimated GFR > 60 mL/min (>60); GLUCOSE 113 mg/dl (70-220); POTASSIUM 3.6 mmol/L (3.5-5.1); SODIUM 138 mmol/L (135-144)
[2018-08-17] MEDS: SKIN RESP FACT/SHARK/PH MERCU SUPP PR (16:00)
[2018-08-17] MEDS: FUROSEMIDE 40 MG TAB PO (17:46)
[2018-08-17] MEDS: HYDROCODONE/APAP (5/325) TAB PO (17:46)
[2018-08-17] MEDS: PROPRANOLOL 10 MG TAB PO (21:00)
[2018-08-17] MEDS: PSYLLIUM 28% PACKET PO (21:00)
[2018-08-17] MEDS: HEPARIN 5,000 UNIT/1 ML VIAL SC (21:11)
[2018-08-17] MEDS: OXYCODONE/ACETAMINOPHEN (5/325) TAB PO (21:31)
[2018-08-18] MEDS: ONDANSETRON 4 MG INJ IV (04:07)
[2018-08-18 05:15] LABS: ADD MAN DIFF? NO
[2018-08-18 05:23] LABS: WHITE BLOOD COUNT 4.3 10^3/ul (4.8-10.8)
[2018-08-18 05:23] LABS: ABNORMAL IP MESSAGE 1; BASOPHIL # 0.1 10^3/ul (0.0-0.1); BASOPHILS % 1.4 % (0.0-2.0); EOSINOPHILS # 0.3 10^3/ul (0.0-0.5); EOSINOPHILS % 6.3 % (0.0-7.0); HEMATOCRIT 28.7 % (42.0-52.0); HEMOGLOBIN 8.5 g/dl (14.0-18.0); LYMPHOCYTES % 22.4 % (15.0-51.0); MEAN CORPUSCULAR HEMOGLOBIN 21.2 pg (29.0-33.0); MEAN CORPUSCULAR HGB CONC 29.6 g/dl (32.0-37.0); MEAN CORPUSCULAR VOLUME 71.6 fl (82.0-101.0); MEAN PLATELET VOLUME 11.1 fl (7.4-10.4); MONOCYTE # 0.4 10^3/ul (0.3-0.9); MONOCYTES % 8.2 % (0.0-11.0); NEUTROPHIL # 2.6 10^3/ul (1.6-7.5); NEUTROPHILS % 61.5 % (39.0-77.0); PLATELET COUNT 139 10^3/UL (140-415); POSITIVE DIFF @See below; RED BLOOD COUNT 4.01 10^6/ul (4.70-6.10); RED CELL DISTRIBUTION WIDTH 18.8 % (11.5-14.5)
[2018-08-18] MEDS: LEVOTHYROXINE 25 MCG TAB PO (06:04)
[2018-08-18] MEDS: FUROSEMIDE 40 MG TAB PO (06:04)
[2018-08-18 06:09] LABS: ALANINE AMINOTRANSFERASE 30 IU/L (13-69); ALBUMIN 2.7 g/dl (3.3-4.9); ALBUMIN/GLOBULIN RATIO 0.69; ALKALINE PHOSPHATASE 72 IU/L (42-121); ANION GAP 4 (5-13); ASPARTATE AMINO TRANSFERASE 55 IU/L (15-46); BILIRUBIN,INDIRECT 0.5 mg/dl (0-1.1); BILIRUBIN,TOTAL 0.5 mg/dl (0.2-1.3); BLOOD UREA NITROGEN 8 mg/dl (7-20); CALCIUM 7.6 mg/dl (8.4-10.2); CARBON DIOXIDE 26 mmol/L (21-31); CHLORIDE 110 mmol/L (97-110); CREATININE 0.58 mg/dl (0.61-1.24); Estimated GFR > 60 mL/min (>60); GLUCOSE 106 mg/dl (70-220); POTASSIUM 3.5 mmol/L (3.5-5.1); SODIUM 140 mmol/L (135-144); TOTAL PROTEIN 6.6 g/dl (6.1-8.1)
[2018-08-18 06:39] LABS: HEMOGLOBIN A1C 5.5 % (0-5.9)
[2018-08-18] MEDS: SPIRONOLACTONE 50 MG TAB PO (08:48)
[2018-08-18] MEDS: PSYLLIUM 28% PACKET PO (08:49)
[2018-08-18] MEDS: SKIN RESP FACT/SHARK/PH MERCU SUPP PR (08:49)
[2018-08-18] MEDS: PROPRANOLOL 10 MG TAB PO (08:49)
[2018-08-18] MEDS ORDERED: SPIRONOLACTONE 50 MG TAB PO (09:00)
[2018-08-18] MEDS: HEPARIN 5,000 UNIT/1 ML VIAL SC (09:06)
[2018-08-18 10:33] LABS: IRON 35 ug/dl (35-150)
[2018-08-18 10:43] LABS: % IRON SATURATION 10 % SAT (22-52); TOTAL IRON BINDING CAPACITY 334 ug/dl (241-421)
[2018-08-18 11:09] LABS: FERRITIN 7.3 ng/ml (11.1-264.0)
[2018-08-18] MEDS: SOD FERRIC GLUC COMPLX 125 MG in SOD CHLORIDE 0.9% 100 ML IVPB (14:37)
== END 2018-08-18 17:35 | disposition home or self-care (01) ==
LOC: E/R 08:09 → 6WM 12:28
DX: R18.8 Other ascites (principal); K64.0 First degree hemorrhoids; K74.60 Unspecified cirrhosis of liver; E87.6 Hypokalemia
CPT/HCPCS: 49083; 80048; 80053; 82728; 83036; 83540; 83735; 85025; 85610; 85730; 93005; 99285-25; G0378

== ENCOUNTER 2018-08-20 09:44 | Emergency (ER) | payer MEDICARE, OTHER | END 2018-08-20 10:48 | disposition home or self-care (01) | LOC: E/R 09:44 | DX: T81.89XA Other complications of procedures, not elsewhere classified, initial encounter (principal); R18.8 Other ascites; Y73.8 Miscellaneous gastroenterology and urology devices associated with adverse incidents, not elsewhere classified | CPT/HCPCS: 99282 ==

== ENCOUNTER 2018-09-21 08:06 | Inpatient (IN) | payer MEDICARE, OTHER ==
[2018-09-21 08:42] LABS: ABNORMAL IP MESSAGE 1; HEMATOCRIT 23.4 % (42.0-52.0); MEAN CORPUSCULAR HEMOGLOBIN 22.6 pg (29.0-33.0); MEAN CORPUSCULAR HGB CONC 29.5 g/dl (32.0-37.0); MEAN CORPUSCULAR VOLUME 76.7 fl (82.0-101.0); MEAN PLATELET VOLUME 9.6 fl (7.4-10.4); PLATELET COUNT 165 10^3/UL (140-415); POSITIVE DIFF @See below; RED BLOOD COUNT 3.05 10^6/ul (4.70-6.10); RED CELL DISTRIBUTION WIDTH 21.2 % (11.5-14.5)
[2018-09-21 08:42] LABS: WHITE BLOOD COUNT 5.6 10^3/ul (4.8-10.8)
[2018-09-21 08:51] LABS: HEMOGLOBIN 6.9 g/dl (14.0-18.0)
[2018-09-21] MEDS: SOD CHLORIDE 0.9% 0 ML IV (08:51)
[2018-09-21 08:52] LABS: ADD MAN DIFF? YES
[2018-09-21 09:03] LABS: ALANINE AMINOTRANSFERASE 27 IU/L (13-69); ALBUMIN 2.9 g/dl (3.3-4.9); ALBUMIN/GLOBULIN RATIO 0.61; ALKALINE PHOSPHATASE 93 IU/L (42-121); ANION GAP 11 (5-13); ASPARTATE AMINO TRANSFERASE 38 IU/L (15-46); BILIRUBIN,INDIRECT 0.6 mg/dl (0-1.1); BILIRUBIN,TOTAL 0.6 mg/dl (0.2-1.3); BLOOD UREA NITROGEN 8 mg/dl (7-20); CALCIUM 8.7 mg/dl (8.4-10.2); CARBON DIOXIDE 22 mmol/L (21-31); CHLORIDE 108 mmol/L (97-110); CREATININE 0.71 mg/dl (0.61-1.24); Estimated GFR > 60 mL/min (>60); GLUCOSE 129 mg/dl (70-220); POTASSIUM 4.4 mmol/L (3.5-5.1); SODIUM 141 mmol/L (135-144); TOTAL PROTEIN 7.6 g/dl (6.1-8.1)
[2018-09-21 09:08] LABS: INR 1.28; PROTIME 16.1 Sec (11.9-14.9); PT RATIO 1.3
[2018-09-21 09:09] LABS: PARTIAL THROMBOPLASTIN TIME 36.6 Sec (23.0-35.0)
[2018-09-21] MEDS: LIDOCAINE 1% (MPF) 5 ML VIAL (09:24)
[2018-09-21 09:48] LABS: TROPONIN-I < 0.012 ng/ml (0.000-0.120)
[2018-09-21 09:48] LABS: ANISOCYTOSIS 1+ (0-0); EOSINOPHILS % (M) 5 % (0-7); GIANT THROMBO% (M) 2 % (0-0); HYPOCHROMASIA 2+ (0-0); LYMPHOCYTES #M 1.2 10^3/ul (0.8-2.9); LYMPHOCYTES % (M) 23 % (15-51); MICROCYTOSIS 1+ (0-0); MONOCYTE #M 0.2 10^3/ul (0.3-0.9); MONOCYTES % (M) 4 % (0-11); PLATELET ESTIMATE INCREASED; POLYCHROMASIA 3+ (0-0); SEGMENTED NEUTROPHILS (M) % 68 % (39-77); SMUDGE%M 7 % (0-0)
[2018-09-21] MEDS ORDERED: ONDANSETRON 4 MG INJ IV (10:00)
[2018-09-21] MEDS ORDERED: ACETAMINOPHEN 325 MG TAB PO (10:00)
[2018-09-21 15:20] LABS: IMMEDIATE SPIN CROSSMATCH 1 3
[2018-09-21] MEDS: PROPRANOLOL 10 MG TAB PO ×2 (15:30→20:46)
[2018-09-21] MEDS: PANTOPRAZOLE 40 MG INJ IV ×2 (15:42→20:48)
[2018-09-21] MEDS: PHYTONADIONE 10 MG in DEXTROSE 5% 50 ML IVPB (18:07)
[2018-09-22] MEDS: PANTOPRAZOLE 40 MG INJ IV ×2 (05:26→19:10)
[2018-09-22 07:10] LABS: ADD MAN DIFF? NO
[2018-09-22 07:13] LABS: WHITE BLOOD COUNT 4.2 10^3/ul (4.8-10.8)
[2018-09-22 07:13] LABS: BASOPHIL # 0.1 10^3/ul (0.0-0.1); BASOPHILS % 1.2 % (0.0-2.0); EOSINOPHILS # 0.2 10^3/ul (0.0-0.5); EOSINOPHILS % 4.1 % (0.0-7.0); HEMATOCRIT 25.2 % (42.0-52.0); HEMOGLOBIN 7.7 g/dl (14.0-18.0); LYMPHOCYTES # 0.8 10^3/ul (0.8-2.9); LYMPHOCYTES % 19.7 % (15.0-51.0); MEAN CORPUSCULAR HEMOGLOBIN 23.8 pg (29.0-33.0); MEAN CORPUSCULAR HGB CONC 30.6 g/dl (32.0-37.0); MEAN PLATELET VOLUME 10.7 fl (7.4-10.4); MONOCYTE # 0.4 10^3/ul (0.3-0.9); MONOCYTES % 8.4 % (0.0-11.0); NEUTROPHIL # 2.8 10^3/ul (1.6-7.5); NEUTROPHILS % 66.4 % (39.0-77.0); PLATELET COUNT 144 10^3/UL (140-415); RED BLOOD COUNT 3.23 10^6/ul (4.70-6.10); RED CELL DISTRIBUTION WIDTH 20.5 % (11.5-14.5)
[2018-09-22 07:30] LABS: AMMONIA < 9 umol/l (9-30)
[2018-09-22 07:34] LABS: ALANINE AMINOTRANSFERASE 26 IU/L (13-69); ALBUMIN 2.5 g/dl (3.3-4.9); ALBUMIN/GLOBULIN RATIO 0.59; ALKALINE PHOSPHATASE 83 IU/L (42-121); ANION GAP 5 (5-13); ASPARTATE AMINO TRANSFERASE 40 IU/L (15-46); BILIRUBIN,INDIRECT 1.1 mg/dl (0-1.1); BILIRUBIN,TOTAL 1.1 mg/dl (0.2-1.3); BLOOD UREA NITROGEN 10 mg/dl (7-20); CALCIUM 8.2 mg/dl (8.4-10.2); CARBON DIOXIDE 22 mmol/L (21-31); CHLORIDE 112 mmol/L (97-110); CREATININE 0.72 mg/dl (0.61-1.24); Estimated GFR > 60 mL/min (>60); GLUCOSE 86 mg/dl (70-220); MAGNESIUM 1.7 mg/dl (1.7-2.5); PHOSPHORUS 4.1 mg/dl (2.5-4.9); POTASSIUM 4.6 mmol/L (3.5-5.1); SODIUM 139 mmol/L (135-144); TOTAL PROTEIN 6.7 g/dl (6.1-8.1)
[2018-09-22] MEDS: PROPRANOLOL 10 MG TAB PO ×3 (08:41→21:08)
[2018-09-22] MEDS ORDERED: ONDANSETRON 4 MG INJ IV (18:00)
[2018-09-22] MEDS ORDERED: LABETALOL HCL 20MG INJ IV (18:00)
[2018-09-22] MEDS ORDERED: hydrALAzine 20 MG INJ IV (18:00)
[2018-09-22] MEDS ORDERED: METOCLOPRAMIDE 10 MG INJ IV (18:00)
[2018-09-23] MEDS: PANTOPRAZOLE 40 MG INJ IV ×2 (06:11→17:08)
[2018-09-23 06:15] LABS: ADD MAN DIFF? NO
[2018-09-23 06:27] LABS: BASOPHILS % 0.8 % (0.0-2.0); EOSINOPHILS # 0.2 10^3/ul (0.0-0.5); EOSINOPHILS % 4.1 % (0.0-7.0); HEMATOCRIT 25.5 % (42.0-52.0); HEMOGLOBIN 7.7 g/dl (14.0-18.0); LYMPHOCYTES # 0.9 10^3/ul (0.8-2.9); MEAN CORPUSCULAR HEMOGLOBIN 23.3 pg (29.0-33.0); MEAN CORPUSCULAR HGB CONC 30.2 g/dl (32.0-37.0); MEAN PLATELET VOLUME 10.5 fl (7.4-10.4); MONOCYTE # 0.4 10^3/ul (0.3-0.9); MONOCYTES % 8.4 % (0.0-11.0); NEUTROPHIL # 3.3 10^3/ul (1.6-7.5); NEUTROPHILS % 67.1 % (39.0-77.0); PLATELET COUNT 149 10^3/UL (140-415); RED BLOOD COUNT 3.31 10^6/ul (4.70-6.10); RED CELL DISTRIBUTION WIDTH 21.1 % (11.5-14.5)
[2018-09-23 06:27] LABS: WHITE BLOOD COUNT 4.9 10^3/ul (4.8-10.8)
[2018-09-23 07:06] LABS: ALANINE AMINOTRANSFERASE 33 IU/L (13-69); ALBUMIN 2.5 g/dl (3.3-4.9); ALBUMIN/GLOBULIN RATIO 0.58; ALKALINE PHOSPHATASE 82 IU/L (42-121); ANION GAP 8 (5-13); ASPARTATE AMINO TRANSFERASE 34 IU/L (15-46); BILIRUBIN,INDIRECT 0.6 mg/dl (0-1.1); BILIRUBIN,TOTAL 0.6 mg/dl (0.2-1.3); BLOOD UREA NITROGEN 11 mg/dl (7-20); CALCIUM 8.2 mg/dl (8.4-10.2); CARBON DIOXIDE 22 mmol/L (21-31); CHLORIDE 109 mmol/L (97-110); CREATININE 0.76 mg/dl (0.61-1.24); Estimated GFR > 60 mL/min (>60); GLUCOSE 104 mg/dl (70-220); POTASSIUM 4.9 mmol/L (3.5-5.1); SODIUM 139 mmol/L (135-144); TOTAL PROTEIN 6.8 g/dl (6.1-8.1)
[2018-09-23] MEDS: PROPRANOLOL 10 MG TAB PO (08:19)
[2018-09-23] MEDS: GUAIFENESIN/DM 5ML CUP PO (09:34)
[2018-09-23] MEDS: SUCRALFATE (100 MG/ML) 10ML CUP PO ×3 (13:00→17:08)
== END 2018-09-23 19:00 | disposition home or self-care (01) | DRG 380 ==
LOC: E/R 08:06 → PP2 09:36
PROC: 0DB68ZX Excision of Stomach, Via Natural or Artificial Opening Endoscopic, Diagnostic (ICD-10-PCS; principal; 2018-09-22 16:33)
PROC: 0W9G3ZZ Drainage of Peritoneal Cavity, Percutaneous Approach (ICD-10-PCS; 2018-09-22 16:33)
PROC: 30233N1 Transfusion of Nonautologous Red Blood Cells into Peripheral Vein, Percutaneous Approach (ICD-10-PCS; 2018-09-22 16:33)
DX: K22.11 Ulcer of esophagus with bleeding (principal); I85.11 Secondary esophageal varices with bleeding; K76.6 Portal hypertension; D68.9 Coagulation defect, unspecified; D62 Acute posthemorrhagic anemia; K70.31 Alcoholic cirrhosis of liver with ascites; K80.20 Calculus of gallbladder without cholecystitis without obstruction; F10.21 Alcohol dependence, in remission; K31.89 Other diseases of stomach and duodenum; K31.7 Polyp of stomach and duodenum; R16.1 Splenomegaly, not elsewhere classified; E05.90 Thyrotoxicosis, unspecified without thyrotoxic crisis or storm
CPT/HCPCS: 36415; 36430; 71046; 80053; 82140; 83735; 84100; 84484; 85025; 85610; 85730; 86850; 86900; 86901; 86920; 87081; 99285-25

== ENCOUNTER 2018-12-28 06:50 | Emergency (ER) | payer MEDICARE, OTHER ==
[2018-12-28 07:34] LABS: ADD MAN DIFF? NO
[2018-12-28 07:35] LABS: WHITE BLOOD COUNT 4.4 10^3/ul (4.8-10.8)
[2018-12-28 07:35] LABS: BASOPHIL # 0.1 10^3/ul (0.0-0.1); BASOPHILS % 1.1 % (0.0-2.0); EOSINOPHILS # 0.3 10^3/ul (0.0-0.5); EOSINOPHILS % 6.2 % (0.0-7.0); HEMOGLOBIN 8.6 g/dl (14.0-18.0); LYMPHOCYTES # 1.2 10^3/ul (0.8-2.9); LYMPHOCYTES % 27.4 % (15.0-51.0); MEAN CORPUSCULAR HEMOGLOBIN 22.5 pg (29.0-33.0); MEAN CORPUSCULAR HGB CONC 29.7 g/dl (32.0-37.0); MEAN CORPUSCULAR VOLUME 75.9 fl (82.0-101.0); MEAN PLATELET VOLUME 10.5 fl (7.4-10.4); MONOCYTE # 0.5 10^3/ul (0.3-0.9); MONOCYTES % 10.6 % (0.0-11.0); NEUTROPHIL # 2.4 10^3/ul (1.6-7.5); PLATELET COUNT 112 10^3/UL (140-415); RED BLOOD COUNT 3.82 10^6/ul (4.70-6.10); RED CELL DISTRIBUTION WIDTH 18.1 % (11.5-14.5)
[2018-12-28 07:53] LABS: INR 1.22; PROTIME 15.5 Sec (11.9-14.9); PT RATIO 1.2
[2018-12-28 07:54] LABS: PARTIAL THROMBOPLASTIN TIME 36.6 Sec (23.0-35.0)
[2018-12-28 07:57] LABS: ALANINE AMINOTRANSFERASE 26 IU/L (13-69); ALBUMIN 3.5 g/dl (3.3-4.9); ALBUMIN/GLOBULIN RATIO 0.87; ALKALINE PHOSPHATASE 66 IU/L (42-121); ANION GAP 8 (5-13); ASPARTATE AMINO TRANSFERASE 28 IU/L (15-46); BILIRUBIN,INDIRECT 0.9 mg/dl (0-1.1); BILIRUBIN,TOTAL 0.9 mg/dl (0.2-1.3); BLOOD UREA NITROGEN 14 mg/dl (7-20); CALCIUM 8.8 mg/dl (8.4-10.2); CARBON DIOXIDE 23 mmol/L (21-31); CHLORIDE 109 mmol/L (97-110); CREATININE 0.59 mg/dl (0.61-1.24); Estimated GFR > 60 mL/min (>60); GLUCOSE 145 mg/dl (70-220); POTASSIUM 4.1 mmol/L (3.5-5.1); SODIUM 140 mmol/L (135-144); TOTAL PROTEIN 7.5 g/dl (6.1-8.1)
== END 2018-12-28 09:36 | disposition home or self-care (01) ==
LOC: E/R 06:50
DX: D64.9 Anemia, unspecified (principal); I10 Essential (primary) hypertension; R18.8 Other ascites
CPT/HCPCS: 76705; 80053; 85025; 85610; 85730; 86850; 86900; 86901; 99284-25

== ENCOUNTER 2019-02-18 09:20 | Emergency (ER) | payer MEDICARE, OTHER ==
[2019-02-18] MEDS: OXYCODONE/ACETAMINOPHEN (5/325) TAB PO (09:47)
[2019-02-18 09:54] LABS: ADD MAN DIFF? NO
[2019-02-18 09:59] LABS: ABNORMAL IP MESSAGE 1; BASOPHILS % 0.5 % (0.0-2.0); EOSINOPHILS # 0.1 10^3/ul (0.0-0.5); HEMATOCRIT 28.3 % (42.0-52.0); HEMOGLOBIN 8.5 g/dl (14.0-18.0); LYMPHOCYTES # 0.7 10^3/ul (0.8-2.9); LYMPHOCYTES % 16.8 % (15.0-51.0); MEAN CORPUSCULAR HEMOGLOBIN 23.4 pg (29.0-33.0); MEAN PLATELET VOLUME 11.1 fl (7.4-10.4); MONOCYTE # 0.5 10^3/ul (0.3-0.9); NEUTROPHIL # 2.7 10^3/ul (1.6-7.5); NEUTROPHILS % 68.4 % (39.0-77.0); PLATELET COUNT 70 10^3/UL (140-415); POSITIVE DIFF @See below; RED BLOOD COUNT 3.63 10^6/ul (4.70-6.10); RED CELL DISTRIBUTION WIDTH 18.3 % (11.5-14.5)
[2019-02-18 10:15] LABS: ALANINE AMINOTRANSFERASE 18 IU/L (13-69); ALBUMIN 3.3 g/dl (3.3-4.9); ALBUMIN/GLOBULIN RATIO 0.73; ALKALINE PHOSPHATASE 80 IU/L (42-121); ANION GAP 10 (5-13); ASPARTATE AMINO TRANSFERASE 30 IU/L (15-46); BLOOD UREA NITROGEN 11 mg/dl (7-20); CALCIUM 8.2 mg/dl (8.4-10.2); CARBON DIOXIDE 27 mmol/L (21-31); CHLORIDE 104 mmol/L (97-110); CREATININE 0.58 mg/dl (0.61-1.24); Estimated GFR > 60 mL/min (>60); GLUCOSE 106 mg/dl (70-220); LIPASE 129 U/L (23-300); POTASSIUM 3.2 mmol/L (3.5-5.1); SODIUM 141 mmol/L (135-144); TOTAL PROTEIN 7.8 g/dl (6.1-8.1)
[2019-02-18 10:16] LABS: AMMONIA 47 umol/l (9-30)
[2019-02-18 10:26] LABS: TROPONIN-I < 0.012 ng/ml (0.000-0.120)
[2019-02-18] MEDS: LIDOCAINE/MYLANTA 40 ML BTL PO (10:32)
[2019-02-18] MEDS: BELLADONNA/PHENOBARBITAL TAB PO (10:32)
[2019-02-18] MEDS: LACTULOSE 30ML CUP PO (11:09)
== END 2019-02-18 11:50 | disposition home or self-care (01) ==
LOC: E/R 11:50
DX: D64.9 Anemia, unspecified (principal); K70.31 Alcoholic cirrhosis of liver with ascites; K21.0 Gastro-esophageal reflux disease with esophagitis; E72.20 Disorder of urea cycle metabolism, unspecified; I10 Essential (primary) hypertension; E66.9 Obesity, unspecified; Z68.31 Body mass index [BMI] 31.0-31.9, adult
CPT/HCPCS: 36415; 76705; 80053; 82140; 83690; 84484; 85025; 86850; 86900; 86901; 99284-25

== ENCOUNTER 2019-02-26 06:31 | Inpatient (IN) | payer MEDICARE, OTHER ==
[2019-02-26] MEDS: ONDANSETRON 4 MG INJ IV (07:13)
[2019-02-26] MEDS: SOD CHLORIDE 0.9% 1,000 ML IV (07:13)
[2019-02-26] MEDS: LORAZEPAM 2 MG INJ IV (07:14)
[2019-02-26] MEDS: FAMOTIDINE 20 MG INJ IV (07:14)
[2019-02-26] MEDS: PANTOPRAZOLE 40 MG INJ IV (07:22)
[2019-02-26 07:34] LABS: ADD MAN DIFF? NO
[2019-02-26 07:39] LABS: ABNORMAL IP MESSAGE 1; BASOPHILS % 0.9 % (0.0-2.0); EOSINOPHILS % 0.2 % (0.0-7.0); HEMATOCRIT 23.9 % (42.0-52.0); HEMOGLOBIN 7.1 g/dl (14.0-18.0); LYMPHOCYTES # 0.7 10^3/ul (0.8-2.9); LYMPHOCYTES % 14.4 % (15.0-51.0); MEAN CORPUSCULAR HEMOGLOBIN 23.1 pg (29.0-33.0); MEAN CORPUSCULAR HGB CONC 29.7 g/dl (32.0-37.0); MEAN CORPUSCULAR VOLUME 77.6 fl (82.0-101.0); MEAN PLATELET VOLUME 9.9 fl (7.4-10.4); MONOCYTE # 0.3 10^3/ul (0.3-0.9); MONOCYTES % 5.7 % (0.0-11.0); NEUTROPHIL # 3.6 10^3/ul (1.6-7.5); NEUTROPHILS % 77.9 % (39.0-77.0); PLATELET COUNT 94 10^3/UL (140-415); POSITIVE DIFF @See below; RED BLOOD COUNT 3.08 10^6/ul (4.70-6.10)
[2019-02-26 07:39] LABS: WHITE BLOOD COUNT 4.6 10^3/ul (4.8-10.8)
[2019-02-26 07:58] LABS: AMMONIA 56 umol/l (9-30)
[2019-02-26 08:00] LABS: ALANINE AMINOTRANSFERASE 17 IU/L (13-69); ALBUMIN 2.9 g/dl (3.3-4.9); ALBUMIN/GLOBULIN RATIO 0.78; ALKALINE PHOSPHATASE 50 IU/L (42-121); AMYLASE 59 U/L (11-123); ANION GAP 10 (5-13); ASPARTATE AMINO TRANSFERASE 32 IU/L (15-46); BILIRUBIN,INDIRECT 0.9 mg/dl (0-1.1); BILIRUBIN,TOTAL 0.9 mg/dl (0.2-1.3); BLOOD UREA NITROGEN 16 mg/dl (7-20); CARBON DIOXIDE 21 mmol/L (21-31); CHLORIDE 111 mmol/L (97-110); CREATININE 0.47 mg/dl (0.61-1.24); Estimated GFR > 60 mL/min (>60); GLUCOSE 143 mg/dl (70-220); LIPASE 196 U/L (23-300); POTASSIUM 3.7 mmol/L (3.5-5.1); SODIUM 142 mmol/L (135-144); TOTAL PROTEIN 6.6 g/dl (6.1-8.1)
[2019-02-26 08:01] LABS: ETHANOL < 10.0 mg/dl (0-0); INR 1.58; PT RATIO 1.5
[2019-02-26] MEDS: MAGNESIUM SULFATE 2 GM, MULTIVITAMINS 10 ML, THIAMINE 100 MG, FOLIC ACID 1 MG in SOD CH... IV (08:01)
[2019-02-26 08:02] LABS: PARTIAL THROMBOPLASTIN TIME 32.6 Sec (23.0-35.0)
[2019-02-26 08:09] LABS: TROPONIN-I < 0.012 ng/ml (0.000-0.120)
[2019-02-26] MEDS ORDERED: ACETAMINOPHEN 325 MG TAB PO (09:00)
[2019-02-26] MEDS ORDERED: ONDANSETRON 4 MG INJ IV (09:00)
[2019-02-26] MEDS: LACTULOSE 30ML CUP PO (09:39)
[2019-02-26] MEDS: OCTREOTIDE 50 MCG in SOD CHLORIDE 0.9% 25 ML IVPB (09:39)
[2019-02-26] MEDS: PANTOPRAZOLE IV 80 MG in SOD CHLORIDE 0.9% 100 ML IV ×2 (09:39→18:22)
[2019-02-26] MEDS: OCTREOTIDE 500 MCG in SOD CHLORIDE 0.9% 49 ML IV (09:39)
[2019-02-26] MEDS: SOD CHLORIDE 0.9% 250 ML IV* (14:21)
[2019-02-26] MEDS: PROPOFOL 20 ML (18:00)
[2019-02-26] MEDS: LIDOCAINE 2% (SDV) 5 ML INJ (18:00)
[2019-02-26] MEDS: OCTREOTIDE 1 MG in DEXTROSE 5% 95 ML IV (18:22)
[2019-02-26 18:45] LABS: HEMATOCRIT 21.6 % (42.0-52.0)
[2019-02-26] MEDS ORDERED: morphine 2 MG INJ (18:46)
[2019-02-26 18:48] LABS: HEMOGLOBIN 6.6 g/dl (14.0-18.0)
[2019-02-26] MEDS: morphine 2 MG INJ IV (19:08)
[2019-02-26 23:03] LABS: IMMEDIATE SPIN CROSSMATCH 1 4
[2019-02-27] MEDS: morphine 2 MG INJ IV ×4 (00:32→16:50)
[2019-02-27] MEDS: PANTOPRAZOLE IV 80 MG in SOD CHLORIDE 0.9% 100 ML IV ×2 (04:31→13:59)
[2019-02-27 05:15] LABS: HEMOGLOBIN 8.4 g/dl (14.0-18.0)
[2019-02-27 08:42] LABS: ANION GAP 6 (5-13); BLOOD UREA NITROGEN 15 mg/dl (7-20); CALCIUM 7.2 mg/dl (8.4-10.2); CARBON DIOXIDE 24 mmol/L (21-31); CHLORIDE 110 mmol/L (97-110); CREATININE 0.48 mg/dl (0.61-1.24); Estimated GFR > 60 mL/min (>60); GLUCOSE 128 mg/dl (70-220); POTASSIUM 3.4 mmol/L (3.5-5.1); SODIUM 140 mmol/L (135-144)
[2019-02-27 12:23] LABS: HEMATOCRIT 28.4 % (42.0-52.0); HEMOGLOBIN 8.8 g/dl (14.0-18.0)
[2019-02-27] MEDS: OCTREOTIDE 1 MG in DEXTROSE 5% 95 ML IV (13:58)
[2019-02-27] MEDS: PANTOPRAZOLE 40 MG INJ IV (18:35)
[2019-02-27 18:54] LABS: HEMATOCRIT 28.3 % (42.0-52.0); HEMOGLOBIN 8.7 g/dl (14.0-18.0)
[2019-02-28 01:15] LABS: HEMATOCRIT 27.3 % (42.0-52.0); HEMOGLOBIN 8.5 g/dl (14.0-18.0)
[2019-02-28] MEDS: PANTOPRAZOLE 40 MG INJ IV ×2 (05:54→17:28)
[2019-02-28 06:32] LABS: HEMATOCRIT 27.3 % (42.0-52.0); HEMOGLOBIN 8.3 g/dl (14.0-18.0)
[2019-02-28] MEDS: OCTREOTIDE 1 MG in DEXTROSE 5% 95 ML IV (09:03)
[2019-02-28 12:22] LABS: ADD MAN DIFF? NO
[2019-02-28 12:24] LABS: WHITE BLOOD COUNT 5.1 10^3/ul (4.8-10.8)
[2019-02-28 12:24] LABS: ABNORMAL IP MESSAGE 1; BASOPHILS % 0.8 % (0.0-2.0); EOSINOPHILS # 0.2 10^3/ul (0.0-0.5); EOSINOPHILS % 3.9 % (0.0-7.0); HEMATOCRIT 27.2 % (42.0-52.0); HEMOGLOBIN 8.5 g/dl (14.0-18.0); LYMPHOCYTES # 0.7 10^3/ul (0.8-2.9); LYMPHOCYTES % 13.7 % (15.0-51.0); MEAN CORPUSCULAR HEMOGLOBIN 24.7 pg (29.0-33.0); MEAN CORPUSCULAR HGB CONC 31.3 g/dl (32.0-37.0); MEAN CORPUSCULAR VOLUME 79.1 fl (82.0-101.0); MEAN PLATELET VOLUME 9.9 fl (7.4-10.4); MONOCYTE # 0.5 10^3/ul (0.3-0.9); MONOCYTES % 9.8 % (0.0-11.0); NEUTROPHIL # 3.7 10^3/ul (1.6-7.5); NEUTROPHILS % 71.6 % (39.0-77.0); PLATELET COUNT 62 10^3/UL (140-415); POSITIVE DIFF @See below; RED BLOOD COUNT 3.44 10^6/ul (4.70-6.10); RED CELL DISTRIBUTION WIDTH 17.8 % (11.5-14.5)
[2019-02-28 12:49] LABS: ALANINE AMINOTRANSFERASE 27 IU/L (13-69); ALBUMIN 2.9 g/dl (3.3-4.9); ALKALINE PHOSPHATASE 55 IU/L (42-121); ANION GAP 8 (5-13); ASPARTATE AMINO TRANSFERASE 47 IU/L (15-46); BILIRUBIN,INDIRECT 1.2 mg/dl (0-1.1); BILIRUBIN,TOTAL 1.2 mg/dl (0.2-1.3); BLOOD UREA NITROGEN 12 mg/dl (7-20); CALCIUM 7.6 mg/dl (8.4-10.2); CARBON DIOXIDE 24 mmol/L (21-31); CHLORIDE 108 mmol/L (97-110); CREATININE 0.53 mg/dl (0.61-1.24); Estimated GFR > 60 mL/min (>60); GLUCOSE 109 mg/dl (70-220); POTASSIUM 3.5 mmol/L (3.5-5.1); SODIUM 140 mmol/L (135-144)
[2019-02-28] MEDS: PROPRANOLOL 20 MG TAB PO (21:11)
[2019-03-01] MEDS: PANTOPRAZOLE 40 MG INJ IV (06:10)
[2019-03-01 06:38] LABS: ADD MAN DIFF? NO
[2019-03-01 06:59] LABS: ABNORMAL IP MESSAGE 1; BASOPHILS % 0.8 % (0.0-2.0); EOSINOPHILS # 0.2 10^3/ul (0.0-0.5); EOSINOPHILS % 4.7 % (0.0-7.0); HEMATOCRIT 28.2 % (42.0-52.0); HEMOGLOBIN 8.6 g/dl (14.0-18.0); LYMPHOCYTES # 1.1 10^3/ul (0.8-2.9); LYMPHOCYTES % 21.3 % (15.0-51.0); MEAN CORPUSCULAR HEMOGLOBIN 24.8 pg (29.0-33.0); MEAN CORPUSCULAR HGB CONC 30.5 g/dl (32.0-37.0); MEAN CORPUSCULAR VOLUME 81.3 fl (82.0-101.0); MONOCYTE # 0.6 10^3/ul (0.3-0.9); MONOCYTES % 11.1 % (0.0-11.0); NEUTROPHIL # 3.1 10^3/ul (1.6-7.5); NEUTROPHILS % 61.7 % (39.0-77.0); POSITIVE DIFF @See below; RED BLOOD COUNT 3.47 10^6/ul (4.70-6.10); RED CELL DISTRIBUTION WIDTH 18.4 % (11.5-14.5)
[2019-03-01 06:59] LABS: WHITE BLOOD COUNT 4.9 10^3/ul (4.8-10.8)
[2019-03-01 07:01] LABS: PLATELET COUNT 77 10^3/UL (140-415)
[2019-03-01 07:12] LABS: ANION GAP 7 (5-13); BLOOD UREA NITROGEN 11 mg/dl (7-20); CALCIUM 7.7 mg/dl (8.4-10.2); CARBON DIOXIDE 24 mmol/L (21-31); CHLORIDE 110 mmol/L (97-110); CREATININE 0.54 mg/dl (0.61-1.24); Estimated GFR > 60 mL/min (>60); GLUCOSE 85 mg/dl (70-220); MAGNESIUM 1.6 mg/dl (1.7-2.5); PHOSPHORUS 2.8 mg/dl (2.5-4.9); POTASSIUM 3.3 mmol/L (3.5-5.1); SODIUM 141 mmol/L (135-144)
[2019-03-01] MEDS: PROPRANOLOL 20 MG TAB PO ×2 (08:49→08:51)
[2019-03-01] MEDS: POTASSIUM CHLORIDE (SR) 20 MEQ TAB PO (11:49)
[2019-03-01] MEDS: MAGNESIUM SULFATE 2 GM/50 ML 50 ML IVPB (12:06)
== END 2019-03-01 16:42 | disposition home or self-care (01) | DRG 432 ==
LOC: E/R 06:31 → TEL 02-27 17:14 → ICU 17:40
PROVIDERS: Pediatrics Neonatal-Perinatal Medicine
PROC: 06L38CZ Occlusion of Esophageal Vein with Extraluminal Device, Via Natural or Artificial Opening Endoscopic (ICD-10-PCS; principal; 2019-02-26 15:00)
PROC: 30233N1 Transfusion of Nonautologous Red Blood Cells into Peripheral Vein, Percutaneous Approach (ICD-10-PCS; 2019-02-26 16:15)
DX: K70.30 Alcoholic cirrhosis of liver without ascites (principal); I85.11 Secondary esophageal varices with bleeding; D62 Acute posthemorrhagic anemia; D69.6 Thrombocytopenia, unspecified; K70.31 Alcoholic cirrhosis of liver with ascites; D50.0 Iron deficiency anemia secondary to blood loss (chronic); F10.20 Alcohol dependence, uncomplicated
CPT/HCPCS: 36430; 71045; 76705; 80048; 80053; 80307; 82140; 82150; 83690; 83735; 84100; 84484; 85014; 85018; 85025; 85610; 85730; 86850; 86900; 86901; 86920; 87081; 93005; 96361; 96365; 96375; 99291-25

== ENCOUNTER 2019-03-18 08:42 | Emergency (ER) | payer MEDICARE, OTHER ==
[2019-03-18 09:54] LABS: ADD MAN DIFF? NO
[2019-03-18 10:08] LABS: WHITE BLOOD COUNT 3.3 10^3/ul (4.8-10.8)
[2019-03-18 10:08] LABS: ABNORMAL IP MESSAGE 1; BASOPHIL # 0.1 10^3/ul (0.0-0.1); BASOPHILS % 1.5 % (0.0-2.0); EOSINOPHILS # 0.2 10^3/ul (0.0-0.5); EOSINOPHILS % 5.8 % (0.0-7.0); HEMOGLOBIN 9.1 g/dl (14.0-18.0); LYMPHOCYTES # 0.8 10^3/ul (0.8-2.9); LYMPHOCYTES % 23.1 % (15.0-51.0); MEAN CORPUSCULAR HEMOGLOBIN 24.6 pg (29.0-33.0); MEAN CORPUSCULAR HGB CONC 30.3 g/dl (32.0-37.0); MEAN CORPUSCULAR VOLUME 81.1 fl (82.0-101.0); MEAN PLATELET VOLUME 11.6 fl (7.4-10.4); MONOCYTE # 0.3 10^3/ul (0.3-0.9); NEUTROPHILS % 59.3 % (39.0-77.0); PLATELET COUNT 116 10^3/UL (140-415); POSITIVE DIFF @See below; RED CELL DISTRIBUTION WIDTH 18.3 % (11.5-14.5)
[2019-03-18 10:16] LABS: ALANINE AMINOTRANSFERASE 23 IU/L (13-69); ALBUMIN 3.5 g/dl (3.3-4.9); ALBUMIN/GLOBULIN RATIO 0.83; ALKALINE PHOSPHATASE 68 IU/L (42-121); ANION GAP 9 (5-13); ASPARTATE AMINO TRANSFERASE 37 IU/L (15-46); BILIRUBIN,INDIRECT 0.8 mg/dl (0-1.1); BILIRUBIN,TOTAL 0.8 mg/dl (0.2-1.3); BLOOD UREA NITROGEN 10 mg/dl (7-20); CALCIUM 8.8 mg/dl (8.4-10.2); CARBON DIOXIDE 22 mmol/L (21-31); CHLORIDE 108 mmol/L (97-110); CREATININE 0.61 mg/dl (0.61-1.24); Estimated GFR > 60 mL/min (>60); GLUCOSE 113 mg/dl (70-220); LIPASE 304 U/L (23-300); POTASSIUM 3.8 mmol/L (3.5-5.1); SODIUM 139 mmol/L (135-144); TOTAL PROTEIN 7.7 g/dl (6.1-8.1)
[2019-03-18 10:28] LABS: INR 1.22; PROTIME 15.5 Sec (11.9-14.9); PT RATIO 1.2
[2019-03-18] MEDS: SOD CHLORIDE 0.9% 500 ML IV (10:29)
== END 2019-03-18 11:31 | disposition home or self-care (01) ==
LOC: E/R 08:42
DX: R19.7 Diarrhea, unspecified (principal); I10 Essential (primary) hypertension
CPT/HCPCS: 80053; 83690; 85025; 85610; 99284-25